=== PATIENT | female | born 1970 | race Caucasian/White ===

== ENCOUNTER 2019-05-21 01:38 | Emergency (ER) | payer MEDICAID ==
[~2019-05-21] VITALS: Ht 157.5 cm; Wt 47.6 kg
[~2019-05-21 01:38] MED LIST: METH10TA4 PO; OXYC15TA46 PO
[2019-05-21 02:08] VITALS: BP 125/75
== END 2019-05-21 03:04 | disposition home or self-care (01) ==
LOC: ER 01:40
DX: T81.49XA Infection following a procedure, other surgical site, initial encounter (principal); F98.8 Other specified behavioral and emotional disorders with onset usually occurring in childhood and adolescence; Z90.89 Acquired absence of other organs; Z59.0 Homelessness